=== PATIENT | male | born 1975 | race Caucasian/White ===

== ENCOUNTER 2018-08-03 16:03 | Emergency (ER) | payer OTHER ==
[~2018-08-03] VITALS: Ht 177.8 cm; Wt 80.9 kg
[~2018-08-03 16:03] MED LIST: AMOX/K CLA250 MG/5 M PO
[2018-08-03 16:19] VITALS: BP 125/81
== END 2018-08-03 16:21 | disposition home or self-care (01) | DRG 951 ==
LOC: ED 16:03
DX: Z20.811 Contact with and (suspected) exposure to meningococcus (principal); Y99.0 Civilian activity done for income or pay

== ENCOUNTER → 2019-01-10 | Outpatient (REF) ==
[2019-01-10 09:33] LABS: CHOLESTEROL HDL RATIO 4.9 (<4.4 (CALC))
== END | disposition home or self-care (01) | DRG 951 ==
LOC: LAB 07:37
PROVIDERS: ATTEND Family Medicine
DX: Z02.6 Encounter for examination for insurance purposes (principal)